=== PATIENT | male | born 1975 | race Caucasian/White ===

== ENCOUNTER 2019-05-08 08:18 | Inpatient (IN) | payer BC, MEDICAID ==
[~2019-05-08] VITALS: Ht 180.3 cm; Wt 171.5 kg
[2019-05-08 09:25] LABS: BASOPHILS % (AUTO) 0.9 % (0.0-2.0); EOSINOPHILS % (AUTO) 4.6 % (1.0-6.0); HEMATOCRIT 43.5 % (41-53); HEMOGLOBIN 14.2 g/dL (13.5-17.5); LYMPHOCYTES # (AUTO) 1.3 K/uL (1.0-4.8); LYMPHOCYTES % (AUTO) 23.3 % (22.0-44.0); MEAN CORPUSCULAR HEMOGLOBIN 31.8 pg (26.0-34.0); MEAN CORPUSCULAR HGB CONC 32.7 G/dL (31.0-37.0); MEAN CORPUSCULAR VOLUME 98 fL (80-100); MONOCYTES # (AUTO) 0.5 K/uL (0.1-1.0); MONOCYTES % (AUTO) 8.3 % (2.0-9.0); NEUTROPHILS # (AUTO) 3.4 K/uL (1.8-7.7); NEUTROPHILS % (AUTO) 62.9 % (40.0-70.0); PLATELET COUNT (AUTO) 227 K/uL (150-450); RED BLOOD CELL COUNT(AUTO) 4.46 MIL/uL (4.50-5.90); RED CELL DISTRIBUTION WIDTH 15.8 % (11.5-14.5)
[2019-05-08 09:42] LABS: ANION GAP 10 mmol/L (8-16); CALCIUM, TOTAL 9.5 mg/dL (8.8-10.5); CARBON DIOXIDE 24 mmol/L (22-29); CHLORIDE 103 mmol/L (98-107); CREATININE 0.67 mg/dL (0.60-1.30); GLOMERULAR FILTR. RATE CALC > 60 mL/min (>60); GLUCOSE,RANDOM 84 mg/dL (70-110); POTASSIUM 3.8 mmol/L (3.5-5.1); SODIUM SERUM 137 mmol/L (136-145); UREA NITROGEN, BLOOD 9 mg/dL (7-18)
[2019-05-08 09:48] LABS: ALANINE AMINOTRANSFERASE 11 U/L (12-78); ALBUMIN 4.1 g/dL (3.4-5.0); ALKALINE PHOSPHATASE 131 U/L (46-116); ASPARTATE AMINOTRANSFERASE 16 U/L (15-37); BILIRUBIN,TOTAL 0.7 mg/dL (0.1-1.0); TOTAL PROTEIN, SERUM 7.5 g/dL (6.4-8.2)
[2019-05-08 15:34] LABS: AMPHET/METH SCREEN,URINE POSITIVE (NEGATIVE); BARBITURATE SCREEN, URINE NEGATIVE (NEGATIVE); BENZODIAZEPINES SCREEN,URINE NEGATIVE (NEGATIVE); CANNABINOID SCREEN,URINE POSITIVE (NEGATIVE); COCAINE SCREEN,URINE NEGATIVE (NEGATIVE); METHADONE SCREEN, URINE NEGATIVE (NEGATIVE); OPIATE SCREEN,URINE NEGATIVE (NEGATIVE); PHENCYCLIDINE SCREEN,URINE NEGATIVE (NEGATIVE)
[2019-05-08 17:00] VITALS: BP 134/80
[2019-05-08] MEDS ORDERED: BACITRACIN 28.4 GM OINTMENT TP PRN (19:15)
[2019-05-08] MEDS ORDERED: CloNIDine HCL 0.1 MG TABLET PO PRN (19:15)
[2019-05-08] MEDS ORDERED: BENZOCAINE/MENTHOL LOZENGE MM PRN (19:15)
[2019-05-08] MEDS ORDERED: ONDANSETRON HCL 4 MG TABLET PO PRN (19:15)
[2019-05-08] MEDS ORDERED: ALBUTEROL SULFATE HFA 90 MCG/PUFF 8 GM INHALER IH PRN (19:15)
[2019-05-08] MEDS ORDERED: ACETAMINOPHEN 325 MG TABLET PO PRN (19:15)
[2019-05-08] MEDS ORDERED: LOPERAMIDE HCL 2 MG CAPSULE PO PRN (19:15)
[2019-05-08] MEDS ORDERED: MAG HYDROX/AL HYDROX/SIMETH ES 30 ML SUSPENSION UDCUP PO PRN (19:15)
[2019-05-08] MEDS ORDERED: MAGNESIUM HYDROXIDE SUSPENSION 30 ML UDCUP PO PRN (19:15)
[2019-05-08] MEDS ORDERED: IBUPROFEN 600 MG TABLET PO PRN (19:15)
[2019-05-08] MEDS ORDERED: PETROLATUM,WHITE 28 GM JELLY TP PRN (19:15)
[2019-05-09 06:11] LABS: CHOL/HDL RATIO 2.3 (4.2-7.3); FREE T4 (FREE THYROXINE) 1.06 ng/dL (0.76-1.46); THYROID STIMULATING HORMONE 0.51 uIU/mL (0.36-3.74)
[2019-05-09 06:20] VITALS: BP 103/56
[2019-05-09 08:54] VITALS: BP 102/58
[2019-05-09] MEDS: DOCUSATE SODIUM 100 MG CAPSULE PO SCH (09:00)
[2019-05-09 16:30] VITALS: BP 104/67
[2019-05-10] MEDS: DOCUSATE SODIUM 100 MG CAPSULE PO SCH (10:15)
[2019-05-10] MEDS: RisperiDONE 2 MG TABLET PO SCH ×2 (10:15→18:05)
[2019-05-10 12:01] VITALS: BP 115/89
[2019-05-10 17:00] VITALS: BP 110/60
[2019-05-11] MEDS: DOCUSATE SODIUM 100 MG CAPSULE PO SCH (09:25)
[2019-05-11] MEDS: RisperiDONE 3 MG TABLET PO SCH ×2 (09:25→16:07)
[2019-05-11 10:13] VITALS: BP 130/76
[2019-05-11 19:02] VITALS: BP 110/75
[2019-05-11] MEDS: LORazepam 2 MG TABLET PO PRN (20:08)
[2019-05-12 08:00] VITALS: BP 129/79
[2019-05-12] MEDS: DOCUSATE SODIUM 100 MG CAPSULE PO SCH (09:13)
[2019-05-12] MEDS: RisperiDONE 3 MG TABLET PO SCH ×2 (09:13→16:19)
[2019-05-12 09:34] VITALS: BP 129/73
[2019-05-12 17:06] VITALS: BP 126/77
[2019-05-12] MEDS: LORazepam 2 MG TABLET PO PRN (18:33)
[2019-05-13 00:55] VITALS: BP 139/97
[2019-05-13] MEDS: LORazepam 2 MG TABLET PO PRN ×2 (00:56→20:17)
[2019-05-13] MEDS: DOCUSATE SODIUM 100 MG CAPSULE PO SCH (09:22)
[2019-05-13] MEDS: RisperiDONE 3 MG TABLET PO SCH ×2 (09:22→16:02)
[2019-05-13 09:52] VITALS: BP 152/88
[2019-05-13 16:45] VITALS: BP 141/79
[2019-05-13] MEDS: ZOLPIDEM TARTRATE 10 MG TABLET PO PRN (21:07)
[2019-05-14 02:00] VITALS: BP 135/84
[2019-05-14] MEDS: LORazepam 2 MG TABLET PO PRN ×2 (02:28→16:23)
[2019-05-14] MEDS: HALOPERIDOL 5 MG TABLET PO PRN (02:28)
[2019-05-14 09:30] VITALS: BP 136/80
[2019-05-14] MEDS: RisperiDONE 3 MG TABLET PO SCH ×2 (09:36→16:23)
[2019-05-14] MEDS: DOCUSATE SODIUM 100 MG CAPSULE PO SCH (09:36)
[2019-05-14 16:30] VITALS: BP 132/75
[2019-05-15 08:36] VITALS: BP 124/65
[2019-05-15] MEDS: DOCUSATE SODIUM 100 MG CAPSULE PO SCH (08:52)
[2019-05-15] MEDS: RisperiDONE 3 MG TABLET PO SCH ×2 (08:52→16:25)
[2019-05-15 17:00] VITALS: BP 109/61
[2019-05-15] MEDS: ZOLPIDEM TARTRATE 10 MG TABLET PO PRN (20:25)
[2019-05-16] MEDS: DOCUSATE SODIUM 100 MG CAPSULE PO SCH (08:20)
[2019-05-16] MEDS: RisperiDONE 3 MG TABLET PO SCH ×2 (08:20→16:35)
[2019-05-16 09:21] VITALS: BP 124/68
[2019-05-16] MEDS: HALOPERIDOL 5 MG TABLET PO PRN (09:41)
[2019-05-16] MEDS: LORazepam 2 MG TABLET PO PRN ×2 (09:41→17:57)
[2019-05-16 18:47] VITALS: BP 147/87
[2019-05-17 08:57] VITALS: BP 124/80
[2019-05-17] MEDS: RisperiDONE 3 MG TABLET PO SCH ×2 (09:00→16:24)
[2019-05-17] MEDS: DOCUSATE SODIUM 100 MG CAPSULE PO SCH (09:00)
[2019-05-17] MEDS: LORazepam 2 MG TABLET PO PRN ×3 (09:06→20:26)
[2019-05-17 17:00] VITALS: BP 148/77
[2019-05-17] MEDS: HALOPERIDOL 5 MG TABLET PO PRN (20:26)
[2019-05-18 08:00] VITALS: BP 149/78
[2019-05-18] MEDS: RisperiDONE 3 MG TABLET PO SCH ×2 (08:06→15:58)
[2019-05-18] MEDS: DOCUSATE SODIUM 100 MG CAPSULE PO SCH (08:06)
[2019-05-18] MEDS: HALOPERIDOL 5 MG TABLET PO PRN ×2 (15:58→20:12)
[2019-05-18 16:00] VITALS: BP 113/48
[2019-05-19] MEDS: HALOPERIDOL 5 MG TABLET PO PRN ×2 (00:53→19:31)
[2019-05-19 01:07] VITALS: BP 151/90
[2019-05-19 08:00] VITALS: BP 115/77
[2019-05-19] MEDS: DOCUSATE SODIUM 100 MG CAPSULE PO SCH (09:44)
[2019-05-19] MEDS: RisperiDONE 3 MG TABLET PO SCH ×2 (09:44→16:46)
[2019-05-19 17:04] VITALS: BP 112/74
[2019-05-20] MEDS: DOCUSATE SODIUM 100 MG CAPSULE PO SCH (09:04)
[2019-05-20] MEDS: RisperiDONE 3 MG TABLET PO SCH ×2 (09:04→16:16)
[2019-05-20 10:04] VITALS: BP 121/74
[2019-05-20 16:17] VITALS: BP 116/74
[2019-05-20] MEDS: HALOPERIDOL 5 MG TABLET PO PRN ×2 (16:17→23:47)
[2019-05-21] VITALS: BP 108/69
[2019-05-21] MEDS ORDERED: RISP3 PO (08:58)
[2019-05-21] MEDS: DOCUSATE SODIUM 100 MG CAPSULE PO SCH (09:03)
[2019-05-21] MEDS: RisperiDONE 3 MG TABLET PO SCH (09:03)
[2019-05-21] MEDS ORDERED: DSS100 PO (09:19)
== END 2019-05-21 10:30 | disposition home or self-care (01) | DRG 750 ==
LOC: EMS 08:19 → 3EI 17:34
PROVIDERS: ADMIT Psychiatry & Neurology Psychiatry; ATTEND Psychiatry & Neurology Psychiatry
DX: F20.0 Paranoid schizophrenia (principal); R45.851 Suicidal ideations; G47.00 Insomnia, unspecified; K59.00 Constipation, unspecified; F41.9 Anxiety disorder, unspecified; F19.10 Other psychoactive substance abuse, uncomplicated; F12.90 Cannabis use, unspecified, uncomplicated; F32.9 Major depressive disorder, single episode, unspecified; F17.210 Nicotine dependence, cigarettes, uncomplicated; Z71.6 Tobacco abuse counseling; Z71.51 Drug abuse counseling and surveillance of drug abuser; Z56.0 Unemployment, unspecified
CPT/HCPCS: 84439; 84443; G0480